=== PATIENT | female | born 1995 | race American Indian/Alaskan Native ===

== ENCOUNTER 2016-11-24 11:52 | Emergency (ER) | payer OTHER ==
[2016-11-24 11:55] VITALS: BP 138/82; PULSE 68; RESP 18; TEMP 97.6; O2SAT 100
[2016-11-24 11:56] VITALS: BMI 34.4
--- NOTE | 2016-11-24 12:13 | C.PDOC ---
History Of Present Illness 21 y/o female c/o bilateral lower back pain, sharp, non-radiating, for 2-3 weeks. pt takes ibuprofen occasionally which resolves pain. pt lifts heavy things at work daily. pain is worse with changing position and lifting. denies any fall or trauma to back. denies abdominal pain, nausea, vomiting, fever, chills and urinary symptoms. denies saddle anesthesia, denies numbness and tingling, denies bladder and bowel dysfunction. Time Seen by Provider: 11/24/16 12:04 Chief Complaint (Nursing): Back Pain Past Medical History Reviewed: Historical Data, Nursing Documentation, Vital Signs Vital Signs: Last Vital Signs Temp 97.6 F 11/24/16 11:55 Pulse 68 11/24/16 11:55 Resp 18 11/24/16 11:55 BP 138/82 11/24/16 11:55 Pulse Ox 100 11/24/16 12:34 - Medical History PMH: No Chronic Diseases Surgical History: No Surg Hx Family History: States: Unknown Family Hx - Social History Hx Tobacco Use: Yes Hx Alcohol Use: No Hx Substance Use: No - Immunization History Hx Tetanus Toxoid Vaccination: No Hx Influenza Vaccination: No Hx Pneumococcal Vaccination: No Review Of Systems Constitutional: Negative for: Fever, Chills Cardiovascular: Negative for: Chest Pain, Palpitations Respiratory: Negative for: Cough, Shortness of Breath Gastrointestinal: Negative for: Nausea, Vomiting, Abdominal Pain Genitourinary: Negative for: Dysuria, Frequency Musculoskeletal: Positive for: Back Pain. Negative for: Neck Pain, Shoulder Pain, Arm Pain, Leg Pain Skin: Negative for: Rash Neurological: Negative for: Weakness, Numbness Physical Exam - Physical Exam Appears: Non-toxic, No Acute Distress Skin: Normal Color, Warm, Dry Head: Atraumatic, Normacephalic Neck: Normal, Normal ROM, No Midline Cervical Tenderness, No Paracervical Tenderness Chest: Symmetrical, No Deformity, No Tenderness Cardiovascular: Rhythm Regular, No Murmur Respiratory: Normal Breath Sounds, No Rales, No Rhonchi, No Wheezing Gastrointestinal/Abdominal: Bowel Sounds, Soft, No Tenderness Back: No CVA Tenderness, No Vertebral Tenderness, Other (bilateral lumbar tenderness) Extremity: Normal ROM Neurological/Psych: Oriented x3, Normal Speech, Normal Cognition, Normal Motor, Normal Sensation ED Course And Treatment O2 Sat by Pulse Oximetry: 100 Medical Decision Making Medical Decision Makin21 y/o female with bilateral lower back pain, lifts heavy objects at work; no neurological symptoms - upreg, nsaids. muscle relaxant Disposition Counseled Patient/Family Regarding: Diagnosis, Need For Followup, Rx Given - Disposition Disposition: HOME/ ROUTINE Disposition Time: 12:34 Condition: GOOD Additional Instructions: Follow up with your primary care doctor in a few days. Take naproxen (with food ) as prescribed. Take muscle relaxant at bedtime if needed for pain.- makes you sleepy, do not work, drive or operate machinery while taking this medicine. Recommend light duty (avoid heavy lifting) for the next week. Return to ER for any worsening symptoms. Prescriptions: Cyclobenzaprine [Cyclobenzaprine HCl] 10 mg PO HS #6 tab Naproxen 500 mg PO BID #20 tab Instructions: Acute Low Back Pain (ED), Back Exercises (ED) Forms: General Discharge Instructions, Work Excuse - Clinical Impression Clinical Impression: Lumbar sprain
[2016-11-24 12:41] LABS: RBC URINE < 1 /hpf (0-3); URINE BILIRUBIN NEGATIVE (NEGATIVE); URINE BLOOD NEGATIVE (NEGATIVE); URINE COLOR Yellow (YELLOW); URINE GLUCOSE (UA) NORMAL (Normal); URINE KETONE NEGATIVE (NEGATIVE); URINE LEUKOCYTE ESTERASE NEG Leu/uL (Negative); URINE PROTEIN NEGATIVE (NEGATIVE); URINE UROBILINOGEN NORMAL mg/dL (0.2-1.0); WBC URINE < 1 /hpf (0-5)
== END 2016-11-24 12:49 | disposition home or self-care (01) ==
LOC: C.ER 11:52
DX: S33.5XXA Sprain of ligaments of lumbar spine, initial encounter (principal); X50.0XXA Overexertion from strenuous movement or load, initial encounter; Y92.89 Other specified places as the place of occurrence of the external cause; Y99.0 Civilian activity done for income or pay